=== PATIENT | female | born 1990 | race Caucasian/White ===

== ENCOUNTER 2018-05-08 07:22 | Day surgery (SDC) | payer MEDICAID, OTHER ==
--- NOTE | 2018-05-08 06:45 | PDHPUP ---
History & Physical Update H&P update statement: This history and physical update is based on an assessment of the patient which was completed after admission or registration (within 24 hours), but prior to the surgery/procedure. H&P update: no change in patient's condition since H&P completed
[~2018-05-08 07:22] MED LIST: VANCOMYCIN 1 GM in NS 250 ML IV ONE
[2018-05-08] MEDS ORDERED: VANCOMYCIN PHARMACY TO DOSE MISC ONE (08:02)
[2018-05-08] MEDS ORDERED: ACETAMINOPHEN 500 MG TAB PO ONE (08:02)
[2018-05-08] MEDS ORDERED: LR 1,000 ML IV SCH (08:02)
[2018-05-08] MEDS ORDERED: LR 1,000 ML IV ONE (08:03)
[2018-05-08] MEDS ORDERED: LIDOCAINE 1% 2 ML INJ ID PRN (08:03)
[2018-05-08] MEDS ORDERED: BACITRACIN 50,000 UNITS/10 ML SYR IRR ONE ×2 (08:58→09:08)
[2018-05-08] MEDS ORDERED: POLYMYXIN B SULFATE 500,000 UNIT/10 ML SYR IRR ONE (08:58)
[2018-05-08] MEDS ORDERED: BUPIVACAINE/EPI 0.5% 30 ML SDV ONE (08:58)
--- NOTE | 2018-05-08 09:03 | PDANEPAE ---
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 Seizures controlled on meds - Endocrine History Hx Diabetes: No Endocrine History Comment: Thyroidectomy, 01/2014 - Renal History Hx Renal Disorders: No Renal History Comment: Has 'horseshoe shaped kidney" - Liver History Hx Hepatic Disorders: No - Neurological & Psychiatric Hx Hx Neurological and Psychiatric Disorders: No - Cancer History Hx Cancer: No - Congenital Disorder History Hx Congenital Disorders: No - GI History Hx Gastrointestinal Disorders: No - Other Health History Other Health History: wears glasses and/or contacts. reports sensitivity to bandaids - Chronic Pain History Chronic Pain: No - Surgical History Prior Surgeries: Thyroidectomy, 01/2017. Right knee surgery- knee cap repair, 2016. Brain surgery - aneurysm repair, 01/2014. Tonsillectomy with Joselyn kan ANE Review of Systems Review of Systems: - Exercise capacity METS (RN): 4 METS ANE Patient History - Allergies Allergies/Adverse Reactions: amoxicillin [Amoxicillin] Allergy (Severe, Verified 05/02/18 15:21) Hives - Home Medications Home Medications: Depo-Provera 07/14/15 [Last Taken 1 Month Ago ~04/07/18] Fycompa 05/02/18 [Last Taken 05/07/18 22:00] Levothyroxine 05/02/18 [Last Taken 05/08/18 05:00] traMADol 05/02/18 [Last Taken 1 Week Ago ~05/01/18] - NPO status NPO Status: no food or drink >8 hours NPO Since - Liquids (Date): 05/08/18 NPO Since - Liquids (Time): 05:00 NPO Since - Solids (Date): 05/07/18 NPO Since - Solids (Time): 21:30 - Anes Hx Anes Hx: post operative nausea - Smoking Hx Smoking Status: Never smoked - Alcohol Use Alcohol Use: Rarely - Family Anes Hx Family Anes Hx: none Family Hx Anesthesia Complications: none ANE Labs/Vital Signs - Vital Signs Blood Pressure: 119/76 Heart Rate: 109 Respiratory Rate: 16 O2 Sat (%): 99 Height: 154.94 cm Weight: 67.132 kg ANE Physical Exam - Airway Neck exam: FROM Mallampati Score: Class 2 Mouth exam: normal dental/mouth exam - Pulmonary Pulmonary: no respiratory distress, clear to auscultation - Cardiovascular Cardiovascular: regular rate and rhythym, no murmur, rub, or gallop - ASA Status ASA Status: III ANE Anesthesia Plan Anesthesia Plan: GA w LMA
[2018-05-08] MEDS ORDERED: MIDAZOLAM 2 MG/2 ML VIAL IVP ONE (09:04)
[2018-05-08] MEDS ORDERED: PROPOFOL/EMULSION 500 MG/50 ML BOTTLE IV ONE ×2 (09:08→11:07)
[2018-05-08] MEDS ORDERED: fentaNYL 100 MCG/2 ML INJ ONE ×3 (09:08→12:06)
[2018-05-08] MEDS ORDERED: LIDOCAINE 2% 100 MG/5 ML SYR ONE (09:10)
[2018-05-08] MEDS ORDERED: MIDAZOLAM 2 MG/2 ML VIAL ONE (09:11)
[2018-05-08] MEDS ORDERED: SCOPOLAMINE HYDROBROMIDE 1 MG/3 DAYS PATCH TD ONE (09:12)
[2018-05-08] MEDS ORDERED: SCOPOLAMINE HYDROBROMIDE 1 MG/3 DAYS PATCH TD SCH (09:15)
[2018-05-08] MEDS ORDERED: ONDANSETRON 4 MG/2 ML VIAL ONE (10:40)
[2018-05-08] MEDS ORDERED: DEXAMETHASONE 4 MG/ML VIAL ONE (10:40)
[2018-05-08] MEDS ORDERED: HYDROCODONE/APAP 5/325 TAB PO PRN ×2 (11:21→11:27)
--- NOTE | 2018-05-08 11:22 | POSTOPPROG ---
Post Op Note Date of Operation: 05/08/18 Surgeon: Lazaro Strauss Stamp Classifier: joyce Anesthesiologist: alejandro Anesthesia: GET(General Endotracheal) Pre-op Diagnosis: left knee patellar maltracking Post-op Diagnosis: same Indication: same Procedure: left knee mpfl recon Inf/Abcess present in the surg proc area at time of surgery?: No Depth: Superfical (Skin SQ) EBL: Minimal
[2018-05-08] MEDS ORDERED: ACETAMINOPHEN 500 MG TAB PO PRN (11:27)
[2018-05-08] MEDS ORDERED: oxyCODONE IR 5 MG TAB PO PRN (11:27)
[2018-05-08] MEDS ORDERED: PROMETHAZINE HCL 25 MG/ML INJ IVP PRN (11:27)
[2018-05-08] MEDS ORDERED: HYDROmorphONE/DILAUDID 1 MG/ML INJ IVP PRN (11:27)
[2018-05-08] MEDS ORDERED: NALOXONE HCL 0.4 MG/ML INJ IVP PRN (11:27)
[2018-05-08] MEDS ORDERED: ONDANSETRON 4 MG/2 ML VIAL IVP PRN (11:27)
--- NOTE | 2018-05-08 11:30 | POSTANESTH ---
Post Anesthetic Evaluation Cardiovascular Status: Normal, Stable, Similar to Pre-Op Cond Respiratory Status: Normal, Stable, Similar to Pre-op Cond. Level of Consciousness/Mental Status: Can Participate in Eval, Mildly Sleepy, Arousable Pain Control: Adequate, Prn Tx Ordered Nausea/Vomiting Control: Adequate, Prn Tx Ordered Complications Possibly Related to Anesthesia: None Noted
[2018-05-08] MEDS: fentaNYL 100 MCG/2 ML INJ IVP PRN ×2 (12:09→12:50)
[2018-05-08] MEDS ORDERED: HYDROCODONE/APAP 5/325 TAB ONE (12:26)
[2018-05-08 13:15] VITALS: BP 161/93
--- NOTE | 2018-05-13 08:40 | GOP ---
DATE OF OPERATION: 05/08/2018 SURGEON: Lazaro Strauss MD DISASTER RECOVERY SPECIALIST: Renny Khan, DUCT LAYER HELPER, WINDING INSPECTOR AND TESTER was medical necessity for the entirety of the case. PREOPERATIVE DIAGNOSIS: Left knee patellar instability. POSTOPERATIVE DIAGNOSIS: Left knee patellar instability. PROCEDURE PERFORMED: Left knee MPFL reconstruction with allograft tendon. FINDINGS: SPECIMENS: None. INDICATIONS: Patient is a 28-year-old young woman who is known to me for previous right knee MPFL re construction. She has recurrent instability to her left knee and associated discomfort. She has baljinder led attempts at conservative management. I have therefore recommended operative intervention. I hav e outlined the surgical procedure, risks, benefits, and alternatives. She wished to proceed. Lindsey antoine consent was signed and placed in patient's chart. DESCRIPTION OF PROCEDURE: The patient was identified in the preanesthesia area. The left knee clear ly demarcated as operative site with indelible marker. She was given 2 g of Ancef intravenously en r oute to the operative suite. In the OR, general endotracheal anesthesia was administered. Attention was turned to the left knee, which was sterilely prepped and draped in the usual fashion. Appropria te time-out procedure was carried out. The limb was then exsanguinated and tourniquet inflated to 25 0 mmHg. Attention was turned to the patella. An incision was made along the medial border of the pa tella, carried sharply through the skin and subcutaneous tissue to subperiosteal medial border of the patella. A guide pin was placed at the superior pole of the patella and 15 mm inferior to that. Us ing the [employer] MPFL kit, the drill bits were then passed over the guidewires. An allograft was prep ared on the back table with suturing of the proximal and distal ends. This was secured with 2 Bio Sw iveLock anchors into the patella with an [employer] TightRope within the center portion. A separate inc ision was made over the medial epicondyle and carried sharply through the skin and subcutaneous tissu e directly to the medial epicondyle. The proximal dorsal aspect of the medial epicondyle was identif ied. A guide pin was then advanced bicortically across the femur in this area. This was reamed unic ortically to a depth of 60 mm. The tight rope and allograft were tunneled subcutaneously and drawn i nto the femoral tunnel and the sutures drawn out the lateral side. The button was flipped on the late ral cortex of the femur and the graft was progressively tightened with flexion-extension placed acros s the knee such that a maximum of 30% subluxation in any position was allowed with manual distraction . The wounds were then copiously irrigated, closed in layers using 2-0 Monocryl and esequiel. The ma rgins were instilled with ropivacaine with epinephrine, a total of 20 cc. A sterile dressing was hope lied, followed by Cryo/Cuff and knee brace locked in extension. She was awakened, extubated, and ta derek to recovery room in good stable condition. TOTAL TOURNIQUET TIME: 30 minutes. COMPLICATIONS: None. IMPLANTS: As above. DISPOSITION: To the recovery room, then home. She is weightbearing as tolerated. Will begin range of motion in 2 weeks with 30 degrees increased bend until full range of motion has been restored. /[id number]/MODL
== END 2018-05-08 14:30 | disposition home or self-care (01) ==
LOC: FSGY 07:22
PROVIDERS: ATTEND Orthopaedic Surgery
PROC: 0QSF04Z Reposition Left Patella with Internal Fixation Device, Open Approach (ICD-10-PCS; principal; 2018-05-08 09:45)
DX: M25.362 Other instability, left knee (principal)
CPT/HCPCS: C1713; C1762; J1100; J2001; J2250; J2405; J2704; J3010; J3370